=== PATIENT | female | born 1955 | race Caucasian/White ===

== ENCOUNTER → 2020-06-08 10:25 | Outpatient (CLI) | payer BC, SELFPAY ==
--- NOTE | 2020-06-08 10:54 | MRI_ITS ---
STUDY: MRI LUMBAR SPINE WITH AND WITHOUT CONTRAST REASON FOR EXAM: Female, 64 years old. spinal stenosis TECHNIQUE: Standardized fat and water weighted pulse sequences were obtained in the sagittal and axial planes. DOTAREM 20 CC IV was administered for the contrast portion of the examination. COMPARISON: None FINDINGS: T12-L1: Normal endplates. Normal disc height, hydration and morphology. Normal bilateral facet joints. Normal central canal and bilateral lateral recesses. Normal bilateral intervertebral neural foramina. Normal lumbar lordosis. There is no substantial scoliosis. Normal conus medullaris that terminates at the L1 level. L1-2: Normal endplates. Normal disc height, hydration and morphology. Normal bilateral facet joints. Normal central canal and bilateral lateral recesses. Normal bilateral intervertebral neural foramina. L2-3: Normal endplates. Normal disc height, hydration and morphology. Normal hypertrophic facet joints. Normal central canal and bilateral lateral recesses. Normal bilateral intervertebral neural foramina. Mild annular bulge. L3-4: Normal endplates. Normal disc height, hydration and morphology. Normal hypertrophic facet joints. Normal central canal and bilateral lateral recesses. Normal bilateral intervertebral neural foramina. Mild annular bulge. L4-5: Moderate circumferential disc marginal ossified hypertrophic facet disease causing severe narrowing of the neural foramina bilaterally. The thecal sac measures 10 mm in the midline. L5-S1: Normal endplates. Normal disc height, hydration and morphology. Hypertrophic bilateral facet joints. Normal central canal and bilateral lateral recesses. Severe narrowing right intervertebral neural foramina. Normal visualized sacral ala. Normal visualized paraspinous soft tissue structures. MRI/Spine Lumbar W/WO Contrast IMPRESSION: Multilevel spinal stenosis Electronically Signed: Kenneth Vogel MD at 16:42 EDT , Service support ,
[2020-06-09 15:29] LABS: CREATININE FINGERSTICK 0.78 mg/dL (0.55-1.02)
== END ==
PROVIDERS: PCP Family Medicine
DX: M48.061 Spinal stenosis, lumbar region without neurogenic claudication (principal); M51.26 Other intervertebral disc displacement, lumbar region; M54.17 Radiculopathy, lumbosacral region
CPT/HCPCS: 72158; A9575